=== PATIENT | female | born 1935 | race Caucasian/White ===

== ENCOUNTER → 2016-05-01 | Outpatient (REF) ==
[2016-05-01 17:02] LABS: THYROID STIMULATING HORMONE 2.33 uIU/mL (0.465-4.680)
== END ==
LOC: ZLAB.WCH 16:09
PROVIDERS: Nurse Practitioner Family
DX: Z01.89 Encounter for other specified special examinations (principal)

== ENCOUNTER → 2016-11-15 | Outpatient (REF) ==
[2016-11-15 20:51] LABS: THYROID STIMULATING HORMONE 1.19 uIU/mL (0.465-4.680)
[2016-11-16 09:29] LABS: DIGOXIN 0.4 ng/mL (0.8-2.0)
== END ==
LOC: ZLAB.WCH 19:49
PROVIDERS: Nurse Practitioner Family
DX: Z01.89 Encounter for other specified special examinations (principal)

== ENCOUNTER → 2017-04-01 | Outpatient (REF) | LOC: ZLAB.WCH 10:31 | DX: Z01.89 Encounter for other specified special examinations (principal) ==

== ENCOUNTER → 2017-04-03 | Outpatient (REF) ==
[2017-04-03 19:29] LABS: IRON,SERUM 68 ug/dL (35-150)
[2017-04-03 19:38] LABS: TOTAL IRON BINDING CAPACITY 266 ug/dL (265-497)
[2017-04-03 20:05] LABS: FERRITIN 126 ng/mL (11-264)
== END ==
LOC: ZLAB.WCH 18:52
PROVIDERS: Nurse Practitioner Family
DX: Z01.89 Encounter for other specified special examinations (principal)

== ENCOUNTER → 2017-09-04 | Outpatient (REF) | LOC: ZLAB.WCH 15:47 | DX: Z01.89 Encounter for other specified special examinations (principal) ==

== ENCOUNTER → 2018-01-27 | Outpatient (REF) | LOC: ZLAB.WCH 15:54 | DX: Z01.89 Encounter for other specified special examinations (principal) ==

== ENCOUNTER → 2018-05-23 | Outpatient (REF) | LOC: ZLAB.WCH 18:43 | DX: Z01.89 Encounter for other specified special examinations (principal) ==

== ENCOUNTER → 2018-09-30 | Outpatient (REF) | LOC: ZLAB.WCH 18:22 | DX: Z01.89 Encounter for other specified special examinations (principal) ==